=== PATIENT | male | born 1960 | race Two or more races ===

== ENCOUNTER 2019-07-28 16:38 | Outpatient (CLI) | payer OTHER | END 2019-07-28 16:51 | disposition home or self-care (01) | LOC: LAB 16:38 | DX: R97.20 Elevated prostate specific antigen [PSA] (principal) ==

== ENCOUNTER → 2019-09-23 | Outpatient (CLI) | payer OTHER | END | disposition home or self-care (01) | LOC: SONOGRAMA 07:09 | DX: R97.20 Elevated prostate specific antigen [PSA] (principal) ==

== ENCOUNTER 2019-11-09 11:08 | Outpatient (CLI) | payer OTHER | END 2019-11-09 12:22 | disposition home or self-care (01) | LOC: NUCLEAR 11:08 | DX: I65.23 Occlusion and stenosis of bilateral carotid arteries (principal) ==

== ENCOUNTER 2019-11-12 07:59 | Outpatient (CLI) | payer OTHER | END 2019-11-12 08:22 | disposition home or self-care (01) | LOC: NUCLEAR 07:59 | DX: I25.84 Coronary atherosclerosis due to calcified coronary lesion (principal) ==

== ENCOUNTER 2019-11-24 07:31 | Outpatient (CLI) | payer OTHER | END 2019-11-24 12:44 | disposition home or self-care (01) | LOC: TOM 07:31 | DX: R97.20 Elevated prostate specific antigen [PSA] (principal); C61 Malignant neoplasm of prostate; R31.0 Gross hematuria ==

== ENCOUNTER 2020-01-17 08:30 | Inpatient (IN) | payer OTHER ==
[~2020-01-17] VITALS: Ht 185.4 cm; Wt 97.5 kg
[2020-03-06] MEDS ORDERED: ZYPREXA20 MG PO (12:27)
[2020-03-06] MEDS ORDERED: PROZAC40 MG PO (12:27)
[2020-03-06] MEDS ORDERED: ZYPREXA5 MG PO (12:27)
[2020-03-06] MEDS ORDERED: NASAL MIST126 ML (12:28)
[2020-03-06] MEDS ORDERED: CLONAZEPAM2 MG PO (12:28)
== END 2020-03-15 09:48 | disposition home or self-care (01) | DRG 707 ==
LOC: ADM 08:30 → O/R 03-10 06:15 → SURH 03-10 06:15 → SURG 03-10 07:00 → EDSTATUS 03-10 10:00 → CIR.AMB 03-10 10:00 → SURG 03-10 10:00 → SURH 03-10 14:40
PROVIDERS: ADMIT Urology; ATTEND Urology
PROC: 07TC0ZZ Resection of Pelvis Lymphatic, Open Approach (ICD-10-PCS; 2020-03-10)
PROC: 0VT00ZZ Resection of Prostate, Open Approach (ICD-10-PCS; principal; 2020-03-10 07:00)
DX: C61 Malignant neoplasm of prostate (principal); J98.11 Atelectasis; Z90.79 Acquired absence of other genital organ(s); Z87.891 Personal history of nicotine dependence

== ENCOUNTER → 2020-09-25 14:50 | Outpatient (CLI) | payer OTHER ==
[~2020-09-25 14:50] MED LIST: CLONAZEPAM2 MG PO; NASAL MIST126 ML; PROZAC40 MG PO; ZYPREXA20 MG PO; ZYPREXA5 MG PO
== END | disposition home or self-care (01) ==
LOC: LAB 14:50
PROVIDERS: ATTEND Internal Medicine Cardiovascular Disease
DX: R07.89 Other chest pain (principal)

== ENCOUNTER 2022-03-25 08:03 | Day surgery (SDC) | payer OTHER | END 2022-03-25 14:40 | disposition home or self-care (01) | LOC: AMB-ENDOS 08:03 | PROVIDERS: ATTEND Surgery | DX: D12.0 Benign neoplasm of cecum (principal); Z20.822 Contact with and (suspected) exposure to COVID-19; K57.30 Diverticulosis of large intestine without perforation or abscess without bleeding ==

== ENCOUNTER → 2022-10-14 | Outpatient (CLI) | payer OTHER | END | disposition home or self-care (01) | LOC: RAD 12:32 | PROVIDERS: ATTEND Surgery | DX: D12.0 Benign neoplasm of cecum (principal); D37.4 Neoplasm of uncertain behavior of colon; R19.4 Change in bowel habit ==

== ENCOUNTER 2022-10-16 10:15 | Inpatient (IN) | payer OTHER ==
[~2022-10-16] VITALS: Ht 182.9 cm; Wt 84.8 kg
[2022-10-23] MEDS ORDERED: ULTRACET PO (08:36)
[2022-10-23] MEDS ORDERED: INTESTINEX680 M1 PO (08:36)
[2022-10-23] MEDS ORDERED: PEPCID AC20 MG PO (08:37)
== END 2022-10-23 14:09 | disposition home or self-care (01) | DRG 330 ==
LOC: O/R 10-21 06:14 → SURH 10-21 10:15
PROVIDERS: ADMIT Surgery; ATTEND Surgery
PROC: 3E0F7GC Introduction of Other Therapeutic Substance into Respiratory Tract, Via Natural or Artificial Opening (ICD-10-PCS; 2022-10-21)
PROC: 0DTF4ZZ Resection of Right Large Intestine, Percutaneous Endoscopic Approach (ICD-10-PCS; principal; 2022-10-21 11:15)
DX: D12.0 Benign neoplasm of cecum (principal); J95.89 Other postprocedural complications and disorders of respiratory system, not elsewhere classified; J98.11 Atelectasis; Z20.822 Contact with and (suspected) exposure to COVID-19; Z85.46 Personal history of malignant neoplasm of prostate

== ENCOUNTER → 2025-02-09 11:10 | Outpatient (CLI) | payer OTHER ==
[~2025-02-09 11:10] MED LIST changes: +CELEBREX200MG PO; +INTESTINEX680 M1 PO; +NEURONTIN300 MG PO; +PEPCID AC20 MG PO; +PERCOCET 5-3251 EACH PO; +POLY119PG PO; +ULTRACET PO
== END | disposition home or self-care (01) ==
LOC: NUCLEAR 11:00
PROVIDERS: ATTEND Internal Medicine Cardiovascular Disease
DX: M81.0 Age-related osteoporosis without current pathological fracture (principal)